=== PATIENT | male | born 1940 | race Caucasian/White ===

== ENCOUNTER 2018-06-28 08:38 | Inpatient (IN) | payer MEDICARE ==
[~2018-06-28] VITALS: Ht 180.3 cm; Wt 98.4 kg
--- OUTSIDE RECORDS SUMMARY | 2018-06-28 08:40 | XMS REPORT | Clinical Summary ---
Author Author MARILEE Yoomba [facility] [employer] [facility] Address Unknown Phone Unavailable Care Team Providers Care Flat Sorter Processor Name Role Phone Jose Juan Gilbert PCP Allergies No Known Allergies Medications End Date Status Medication Sig Dispensed Refills Start Date Active carvedilol (COREG) 25 MG Take 25 mg by 0 tablet mouth 2 (two) times daily with breakfast and dinner. Active aspirin 325 MG tablet Take 325 mg 0 by mouth daily. Active cholecalciferol (VITAMIN Take 1,000 0 D3) 1,000 unit tablet Units by mouth daily. Active magnesium 250 mg Tab Take by mouth 0 tablet daily. Active multivitamin per tablet Take 1 tablet 0 by mouth daily. Active UBIQUINONE ORAL Take 200 mg 0 by mouth daily. Active nitroglycerin Place 1 spray 0 (NITROLINGUAL) 400 under the mcg/spray spray tongue every 5 (five) minutes as needed for Chest pain. Active quinapril (ACCUPRIL) 20 Take 20 mg by 0 MG tablet mouth daily Patient says taking q AM. Active Problems Problem Noted Date Dilated cardiomyopathy Systolic congestive heart failure (HCC) -- LVEF 20% 12/20/2015 -- HEART CATH -- 08/2015 Premature supraventricular beats -- Frequent (4%) -- HOLTER -- 06/201512/20/2015 Old [place] (myocardial infarction) 12/20/2015 S/P implantation of automatic cardioverter/defibrillator (AICD) DDD AICD, 12/20/2015 BSX, Left, No DFTs 12/20/2015 PVC's (premature ventricular contractions) -- Very frequent (25%) -- 11/08/2015 bigeminy - couplets - triplets -- HOLTER 06/2015 PVC's (premature ventricular contractions) 09/20/2015 Abnormal nuclear stress test 09/20/2015 Congestive cardiomyopathy 09/20/2015 Coronary artery disease 09/20/2015 Essential hypertension 09/20/2015 Premature supraventricular beats 09/20/2015 COPD (chronic obstructive pulmonary disease) 09/20/2015 Chronic combined systolic and diastolic CHF, NYHA class 3 09/20/2015 S/P coronary artery stent placement -- 2000 -- CX stent -- [facility] 09/20/2015 Center Social History Date Tobacco Use Types Packs/Day Years Used Former Smoker Smokeless Tobacco: Snuff Current User Comments: Quit 5 yrs ago, pt may have cigarette every 1-2 mos Alcohol Use Drinks/Week oz/Week Comments No Sex Assigned at Date Recorded Not on file Industry Job Start Date Occupation Not on file Not on file Not on file Travel End Travel History Travel Start No recent travel history available. Last Filed Vital Signs Not on file Plan of Treatment Not on file Implants Device Identifier Shelf Expiration Date Model / Serial / Lot Implanted Type Area Manufactur er 09/09/2017 0276 64CM / [id number] / [employer] [place] / Model 0276 64cm [place] Implanted: Qty: 1 on 12/20/2015 SCIENTIFIC D152 / [id number] / Dynagen [address] / Model D152 [place] Implanted: Qty: 1 on 12/20/2015 [employer] 10/29/2017 7740 45CM / [id number] / Ingevity Mri / Model 7740 45cm [place] Implanted: Qty: 1 on 12/20/2015 [employer]ENTIFIC Results Not on fileafter 06/27/2017 Insurance Payer Benefit Subscriber ID Type Phone Address Plan / Group [facility] xxxxxxxxxxx MEDICARE ADV Advance Directives For more information, please contact: [facility] [address] [place] [address] Date Inactivated Comments Code Status Date Activated 12/21/2015 1:08 PM Full Code 12/20/2015 6:31 AM This code status was determined by: Patient 11/09/2015 11:26 AM Full Code 11/08/2015 5:48 PM This code status was determined by: Patient 09/20/2015 5:56 PM Full Code 09/20/2015 8:31 AM This code status was determined by: Patient 09/20/2015 8:31 AM Full Code 09/20/2015 5:43 AM This code status was determined by: Patient
[2018-06-28] MEDS ORDERED: IPRATROPIUM BROMIDE 0.02% 2.5 ML NEB NEB ONE (08:45)
[2018-06-28] MEDS ORDERED: LEVALBUTEROL HCL SOLN NEBU 0.63 MG/3 ML NEB INH ONE (08:45)
[2018-06-28 08:54] LABS: BASOPHILS % 0.3 % (0.0-1.0); EOSINOPHILS # (AUTO) 0.4 (0.0-0.4); EOSINOPHILS % 7.2 % (0.0-6.0); HEMATOCRIT 40.4 % (38.2-49.6); HEMOGLOBIN 13.4 g/dL (14.0-18.0); LYMPHOCYTES # (AUTO) 1.4 (1.0-3.2); LYMPHOCYTES % 23.3 % (18.0-39.1); MEAN CORPUSCULAR HEMOGLOBIN 32.1 pg (28-32); MEAN CORPUSCULAR HGB CONC 33.2 g/dL (31-35); MEAN CORPUSCULAR VOLUME 96.9 fL (81-99); MONOCYTES # (AUTO) 0.5 (0.2-0.8); MONOCYTES % 7.8 % (4.4-11.3); NEUTROPHILS # (AUTO) 3.6 (2.1-6.9); NEUTROPHILS % 61.2 % (38.7-80.0); PLATELET COUNT 141 x10e3/uL (140-360); RED BLOOD COUNT 4.17 x10e6/uL (4.3-5.7)
[2018-06-28 09:05] LABS: INR 0.92; PARTIAL THROMBOPLASTIN TIME 29.9 seconds (23.8-35.5); PROTHROMBIN TIME 13.2 seconds (11.9-14.5)
[2018-06-28 09:14] LABS: ALBUMIN 3.7 g/dL (3.5-5.0); ALBUMIN/GLOBULIN RATIO 1.3 (0.8-2.0); ANION GAP 15.3 mmol/L (8-16); CALCIUM 8.9 mg/dL (8.4-10.2); CREATININE, SERUM 1.24 mg/dL (0.72-1.25); MAGNESIUM 1.9 MG/DL (1.3-2.1); POTASSIUM 4.3 mmol/L (3.5-5.1)
[2018-06-28 09:20] LABS: B-TYPE NATRIURETIC PEPTIDE2 256.7 pg/mL (0-100)
[2018-06-28 09:25] LABS: INFLUENZAE A&B ANTIGEN (RAPID) NEGATIVE (NEGATIVE)
[2018-06-28 09:26] LABS: STREPTOCOCCUS GRP A ANTIGEN NEGATIVE (NEGATIVE)
[2018-06-28 09:34] LABS: CREATINE KINASE MB 3.6 ng/mL (0-5.0); THYROID STIMULATING HORMONE 0.868 uIU/mL (0.350-4.940)
[2018-06-28 10:06] LABS: CLARITY,URINE SL CLOUDY (CLEAR); COLOR,URINE YELLOW (YELLOW); PROTEIN,URINE DIPSTICK 2+ (NEGATIVE)
[2018-06-28 10:08] LABS: BILIRUBIN,URINE NEGATIVE (NEGATIVE); KETONES,URINE NEGATIVE (NEGATIVE); LEUKOCYTE ESTERASE ,URINE NEGATIVE (NEGATIVE); NITRITE,URINE NEGATIVE (NEGATIVE); URINE UROBILINOGEN 0.2 mg/dL (0.2 - 1)
[2018-06-28] MEDS ORDERED: AZITHROMYCIN 500MG/NS 250 ML 250 ML IV SCH (10:15)
[2018-06-28] MEDS ORDERED: CEFTRIAXONE SOD 1 GM/NS 50 ML 50 ML IV SCH (10:15)
[2018-06-28] MEDS ORDERED: ALBUTEROL SULF 0.083% NEB SOLN 3 ML NEB NEB SCH ×2 (10:15→11:00)
--- NOTE | 2018-06-28 10:16 | Diagnostic Imaging Report ---
Examination: Single AP view of the chest. COMPARISON: None. INDICATION: Cough, shortness of breath DISCUSSION: Lines/tubes: Cardiac ICD. Lungs: No focal pneumonia. Prominent interstitial markings. Pleura: There is no pleural effusion or pneumothorax. Heart and mediastinum: Heart size normal. Aortic calcifications. Bones and soft tissues: No acute bony abnormalities. IMPRESSION: 1. No acute cardiopulmonary abnormalities. Signed by: Dr. Mykel Gamino M.D. on 06/28/2018 10:12 AM
[2018-06-28 10:48] LABS: BACTERIA,URINE RARE /HPF; EPITHELIAL CELLS,URINE RARE /LPF; RBC,URINE 0-5 /HPF (0-5)
--- OUTSIDE RECORDS SUMMARY | 2018-06-28 10:53 | XMS REPORT | Clinical Summary ---
Author Author MARILEE [employer] [facility] [employer] [facility] Address Unknown Phone Unavailable Care Team Providers Care Body Specialist Name Role Phone Jose Juan Gilbert PCP [...] Frequent (4%) -- HOLTER -- 06/201512/20/2015 [place]my[place] infarction) 12/20/2015 S/P implantation of automatic [...] placement -- 2000 -- CX stent -- [facility] 09/20/2015 Center Social History Date Tobacco [...] Area Manufactur er 09/09/2017 0276 64CM / [id number] / Endotak [place] / Model 0276 64cm [place] Implanted: Qty: 1 on 12/20/2015 SCIENTIFIC D152 / [id number] / Dynagen [address] / Model D152 [place] Implanted: Qty: 1 on 12/20/2015 [employer]IFIC 10/29/2017 7740 45CM / [id number] / Ingevity Mri / Model 7740 45cm [place] Implanted: Qty: 1 on 12/20/2015 [employer]IFIC Results Not on fileafter 06/27/2017 Insurance Payer Benefit Subscriber ID Type Phone Address Plan / Group [facility] xxxxxxxxxxx MEDICARE ADV Advance Directives For more information, please contact: [facility] [address] [place] [address] Date Inactivated Comments Code Status [...]
--- OUTSIDE RECORDS SUMMARY | 2018-06-28 10:53 | XMS REPORT ---
Author Author [facility] Address Unknown Phone Unavailable Care Team Providers Care Hospice Nurse Practitioner Name Role Phone Brenden WALLER Unavailable Unavailable Problems This patient has no known problems. Allergies, Adverse Reactions, Alerts This patient has no known allergies or adverse reactions. Medications This patient has no known medications. Results Test Description Test Time Test Comments Text Results Atomic Results Result Comments CHEST SINGLE (PORTABLE) 2018-06-28 09:44:00 [place] [address] Patient Name: UDAY BRADY MR #: [id number] : 1940 Age/Sex: 78/M Req #: [id number] Adm Physician: Ordered by: NATALIE WALLER MD Report #: [id number] Location: ER Room/Bed: Procedure: [id number] DX/CHEST SINGLE (PORTABLE) Exam Date: 06/28/18 Exam Time: 09 REPORT STATUS: Signed Examination: Single AP view of the chest. JARRED RISON: None. INDICATION: Cough, shortness of breath DISCUSSION: Lines/tubes: Cardiac ICD. Lungs: No focal pneumonia. Prominent interstitial markings. Pleura: There is no pleural effusion or pneumothorax. Heart and mediastinum: Heart size normal. Aortic calcifications. Bones and soft tissues: No acute bony abnormalities. IMPRESSION: 1. No acute cardiopulmonary abnormalities. Signed by: Dr. Nahum Maharaj M.D. on 06/28/2018 10:12 AM Dictated By: NAHUM MAHARAJ MD 1012 Transcribed By: NELLI on 06/28/18 1012 COPY TO: NATALIE WALLER MD
[2018-06-28 11:10] LABS: OCCULT BLOOD STOOL POSITIVE (NEGATIVE)
--- NOTE | 2018-06-28 11:12 | NUR ---
PT PLACED IN HOSP BED AND GIVEN 1 CUP OF COFFEE WITH SUGAR AND CREAM
--- NOTE | 2018-06-28 11:13 | NUR ---
PT STATES RELIEF WITH OXYGEN VIA NC
[2018-06-28 11:51] LABS: C DIFFICILE TOXIN A&B AMP PROB NEGATIVE (NEGATIVE)
[2018-06-28] MEDS ORDERED: IPRATROPIUM BROMIDE 0.02% 2.5 ML NEB NEB SCH ×2 (12:00→13:00)
[2018-06-28] MEDS ORDERED: PREDNISONE 20 MG TAB PO ONE (12:15)
[2018-06-28] MEDS: ALBUTEROL/IPRATROPIUM 3 ML NEB NEB SCH ×2 (15:35→21:15)
[2018-06-28] MEDS: LACTOBACILLUS ACIDOPHILUS CAPSULE PO SCH (17:20)
[2018-06-28] MEDS: ENOXAPARIN SOD INJ 40 MG/0.4 ML SYR SC SCH (17:20)
[2018-06-28 20:00] VITALS: BP 163/78
--- NOTE | 2018-06-28 20:00 | NUR ---
. . . . .. . . . 00 Patient received via stretcher from ER. Admission history obtained and Initial physical assessment performed. Patient is AAO x 3. Patient had no complaints of pain. Telemetry with continuous pulse oximetry in place. Patient on 2L NC . Patient oriented to room, call light and plan of care. Bed locked and in lowest position. Bed rails up x 2. Patient instructed to call for assistance when needed. Call light within reach. -
[2018-06-28 20:03] VITALS: BP 175/79
[2018-06-28] MEDS ORDERED: areds 2 OU (20:41)
[2018-06-28] MEDS ORDERED: CARVEDILOL12.5 MG PO (20:41)
[2018-06-28] MEDS ORDERED: QUINAPRIL HCL20 MG PO (20:41)
[2018-06-28] MEDS ORDERED: ECOTRIN325 MG PO (20:41)
[2018-06-28 22:00] VITALS: BP 175/79
[2018-06-28] MEDS ORDERED: HYDRALAZINE HCL 20 MG/ML VIAL IV PRN (22:30)
[2018-06-28] MEDS ORDERED: LOPERAMIDE HCL 2 MG CAP PO PRN (22:30)
[2018-06-28] MEDS ORDERED: LOPERAMIDE HCL 2 MG CAP PO ONE (22:30)
--- NOTE | 2018-06-28 22:40 | NUR ---
Patient complained of diarrhea. Patient's BP also elevated ( 163/78). Dr. Rajeev Loredo notified. New orders received.
[2018-06-29 00:37] VITALS: BP 164/74
[2018-06-29 06:04] VITALS: BP 153/74
[2018-06-29 06:12] LABS: BASOPHILS % 0.2 % (0.0-1.0); EOSINOPHILS % 0.2 % (0.0-6.0); HEMATOCRIT 37.5 % (38.2-49.6); HEMOGLOBIN 13.2 g/dL (14.0-18.0); LYMPHOCYTES # (AUTO) 1.3 (1.0-3.2); LYMPHOCYTES % 22.7 % (18.0-39.1); MEAN CORPUSCULAR HEMOGLOBIN 33.1 pg (28-32); MEAN CORPUSCULAR HGB CONC 35.2 g/dL (31-35); MONOCYTES # (AUTO) 0.5 (0.2-0.8); MONOCYTES % 8.7 % (4.4-11.3); NEUTROPHILS # (AUTO) 3.9 (2.1-6.9); NEUTROPHILS % 67.9 % (38.7-80.0); PLATELET COUNT 144 x10e3/uL (140-360); RED BLOOD COUNT 3.99 x10e6/uL (4.3-5.7); RED CELL DISTRIBUTION WIDTH 11.9 % (11.7-14.4)
[2018-06-29 06:29] LABS: ALANINE AMINOTRANSFERASE 17 IU/L (0-55); ALBUMIN 3.7 g/dL (3.5-5.0); ALBUMIN/GLOBULIN RATIO 1.3 (0.8-2.0); ALKALINE PHOSPHATASE 34 IU/L (40-150); ANION GAP 14.8 mmol/L (8-16); BLOOD UREA NITROGEN 16 mg/dL (7-26); BUN/CREATININE RATIO 16 (6-25); CARBON DIOXIDE 26 mmol/L (22-29); CHLORIDE 99 mmol/L (98-107); CREATININE, SERUM 1.02 mg/dL (0.72-1.25); EST GLOMERULAR FILTRATION RATE > 60 ML/MIN (60-); GLUCOSE 98 mg/dL (74-118); POTASSIUM 4.8 mmol/L (3.5-5.1); SODIUM 135 mmol/L (136-145)
[2018-06-29 06:41] LABS: CHOL/HDL RATIO 3.2 (3.9-4.7)
--- NOTE | 2018-06-29 06:43 | Diagnostic Imaging Report ---
CHEST SINGLE (PORTABLE), 06/29/2018 5:29 AM Technique: CHEST SINGLE (PORTABLE) Comparison: Previous day Clinical history: Cough Findings: See Impression Impression: Limited by portable technique and overlying costochondral calcifications. 1. Lines/Tubes: Stable left chest wall ICD. 2. Stable cardiomediastinal silhouette. 3. Stable appearance of the lungs and pleural spaces without focal consolidation. Signed by: Dr Mara Leonard MD on 06/29/2018 6:40 AM
[2018-06-29] MEDS: ALBUTEROL/IPRATROPIUM 3 ML NEB NEB SCH ×2 (07:00→11:00)
--- NOTE | 2018-06-29 07:10 | NUR ---
Shift report given to oncoming nurse.
--- NOTE | 2018-06-29 07:14 | NUR ---
PT ALERT RESP EVEN AND UNLABORED AT THIS TIME, PT SITTING IN RECLINER, NO DISTRESS NOTED , PT ABLE TO MAKE NEEDS KNOWN, NO C/O PAIN AT THIS TIME. CALL LIGHT IN REACH.
[2018-06-29 07:57] LABS: LYMPHOCYTES % (MANUAL) 27 % (19-48); MONOCYTES % (MANUAL) 7 % (3.4-9.0); NEUTROPHILS % (MANUAL) 65 % (40-74); PLATELET ESTIMATE ADEQUATE; PLATELET MORPHOLOGY COMMENT NORMAL; RBC MORPHOLOGY COMMENT NORMAL
[2018-06-29 08:50] VITALS: BP 168/82
[2018-06-29] MEDS: ASPIRIN 81 MG ENTERIC COATED PO SCH (08:55)
[2018-06-29] MEDS: QUINAPRIL HCL 20 MG TAB PO SCH (08:55)
[2018-06-29] MEDS: LACTOBACILLUS ACIDOPHILUS CAPSULE PO SCH ×2 (08:55→18:11)
[2018-06-29] MEDS ORDERED: CEFTRIAXONE SOD 1 GM/NS 50 ML 50 ML IV SCH (09:00)
[2018-06-29] MEDS ORDERED: ASPIRIN 325 MG TAB PO SCH (09:00)
[2018-06-29 12:04] VITALS: BP 165/73
[2018-06-29] MEDS ORDERED: FUROSEMIDE INJ 10 MG/ML 4 ML VIAL IV ONE ×2 (13:00→18:00)
--- NOTE | 2018-06-29 15:20 | NUR ---
PT B/P 179, DR. FLYNN WAS CALLED, ORDERS GIVEN.
[2018-06-29 16:43] VITALS: BP 179/88
[2018-06-29] MEDS ORDERED: CLONIDINE HCL 0.1 MG TAB PO PRN (17:45)
[2018-06-29] MEDS: CARVEDILOL 12.5 MG TAB PO SCH (18:11)
[2018-06-29] MEDS: ENOXAPARIN SOD INJ 40 MG/0.4 ML SYR SC SCH (18:11)
[2018-06-29] MEDS ORDERED: CLONIDINE HCL 0.1 MG TAB PO ONE (18:15)
[2018-06-29] MEDS: ALBUTEROL/IPRATROPIUM 3 ML NEB NEB PRN (19:00)
--- NOTE | 2018-06-29 19:48 | NUR ---
REPORT GIVEN TO ONCOMING NURSE, FOR CONTINUED CARE.
[2018-06-29 19:50] VITALS: BP 125/62
--- NOTE | 2018-06-29 20:19 | NUR ---
Patient received relaxing in recliner chair. AAO x 3. Patient had no complaints of pain. No signs of respiratory distress. Call light within reach.
[2018-06-29] MEDS: HYDRALAZINE HCL 10 MG TAB PO SCH (22:30)
[2018-06-29] MEDS ORDERED: HYDRALAZINE HCL 10 MG TAB PO SCH (22:30)
--- NOTE | 2018-06-29 23:21 | Consultation ---
DATE OF CONSULTATION: June 29, 2018 CARDIAC CONSULTATION REASON FOR CONSULTATION: Shortness of breath, congestive heart failure, defibrillator. HISTORY: This is an 78-year-old gentleman who is known with long-standing history of coronary artery disease. Patient approximately 11 years ago or so had acute myocardial infarction, seen in [facility]. He had cardiac catheterization next day, so it seemed to be [id number] myocardial infarction and he had coronary stent. Subsequently, he changed his care to [facility]. He was seen by Dr. Junior where he had cardiac catheterization which showed patency of the stent. Patient went into atrial fibrillation approximately 3 years ago. He had ablation. He told me it is unsuccessful, but on EKG it seems he is having atrial pacing. Regardless, he had defibrillator at that time. He was able to be functional. He does have class III shortness of breath on exertion. He denied having any angina. He is maintained on his medication. He is followed regularly by Dr. Junior. He was seen 3 or 4 months ago, everything was fine. Patient came to this institution complaining of severe shortness of breath. Of note, there are 2 different histories. One of them is for the last 4 weeks whatever activity he does, he gets short-winded. The second, his had flu. She was seen in [facility]. She had flu positive, started on treatment. Himself, he was checked because of similar presentation with stuffiness and cough and upper respiratory tract like infection. His flu swab was negative. He was given amoxicillin. He developed diarrhea. He is still having quite a lot of shortness of breath and he is still not feeling very good. He denied having any angina. He does have some orthopnea. Patient came to this institution for shortness of breath. His BNP was only at 256. His chest x-ray showed the presence of the defibrillator in place; however, there is no evidence of volume overload. Patient is still having quite a lot of severe shortness of breath and easy fatigability. He does have some orthopnea. He does have cough and he is complaining of diarrhea. He had an echocardiogram, which was technically difficult, which will affect proper reading, but probably his ejection fraction in the range of 35-40%. REVIEW OF SYSTEMS GENERAL: Patient with acute illness. He has fever of greater than 102 and upper respiratory tract like infection with poor appetite and debility. PULMONARY: Severe shortness of breath. Patient is ex-heavy smoker, stopped 5 years ago, but he can sneak a cigarette every now and then. CARDIAC: Prior history of CHF and atrial fibrillation status post ablation, stable recently. GI: No hematemesis. No melena. : Increased frequency of urination. MUSCULOSKELETAL: Weakness. NEUROLOGICAL: No seizure activity. No weakness. GI: Diarrhea recently, but no hematemesis. No melena. SOCIAL HISTORY: He is a retired highway construction inspector. Social alcohol drinker. Smoked until 5 years ago, but every now and then he sneaks a cigarette. HOME MEDICATIONS: Aspirin, Coreg 12.5 mg twice a day, and quinapril 20 mg a day. ALLERGIES: NONE. PAST MEDICAL HISTORY 1. COPD. 2. Ex-heavy smoker. 3. Coronary artery disease. 4. Congestive heart failure. 5. ICD placement. 6. Status post major myocardial infarction 10 years ago. 7. Atrial fibrillation ablation. FAMILY HISTORY: Father at the age of 50 with myocardial infarction. Mother had coronary artery disease, but she in her 80s of congestive heart failure. PHYSICAL EXAMINATION VITALS: Height of 6 feet, weight of 220 pounds, blood pressure 160/70, heart rate of 60, respiratory rate of 18, currently afebrile. HEENT: Complaint of congested throat and his voice is a little bit harsh. NECK: No elevation of jugular venous pulsation. CHEST: Decreased air entry in bases with decreased lung expansion, few crackles. HEART: ICD is noted in place. PMI in the fifth left intercostal space, normal first and second heart sounds. ABDOMEN: Soft with good bowel sounds. No organomegaly. No abdominal bruits. EXTREMITIES: No cyanosis. No clubbing. No edema. NEUROLOGIC: Awake, alert, oriented, and nonfocal. LABORATORY DATA: BUN of 16, creatinine of 1, sodium of 135, potassium of 4.8. White blood cell count of 5.7, hemoglobin 13.2, hematocrit 37%, platelet of 144,000. TSH of 0.9. Troponins are normal. BNP of only 256. Triglycerides of 104, cholesterol 137, HDL of 43, LDL of 73, TSH of 0.7. Stool for C. difficile is negative. Stool for occult blood is positive. IMPRESSION AND PLAN 1. Febrile illness with with flu. The patient is having typical symptoms of flu that is very high probability and probably is most likely diagnosis. 2. Chronic congestive heart failure. 3. Very difficult to ascertain chronic exacerbation, but the patient is very symptomatic; however, his BNP is only 256. 4. Atrial fibrillation, status post ablation. 5. Coronary artery disease, status post major myocardial infarction, stenting. 6. ICD placement. 7. Obesity. 8. Stool positive for occult blood. Cardiac-oh, my recommendation is observation. Treatment as done by Dr. Loredo. The patient will be given 1 dose of Lasix and they will repeat labs in the morning. We will continue of course his BRAYAN inhibitor, his Coreg, and his aspirin. We will dose him with diuretics as needed. We had a lengthy discussion. I told the patient that once his diarrhea resolves and his shortness of breath is better, probably he should have at least a cardiac stress test. He verbalized understanding. Job#: [id number] HOWARD
[2018-06-30] VITALS (7 sets, daily range): BP systolic 125–170; BP diastolic 62–72
[2018-06-30] MEDS: HYDRALAZINE HCL 10 MG TAB PO SCH ×3 (06:16→22:00)
--- NOTE | 2018-06-30 07:08 | NUR ---
pt awake resp even and unlabored at this time, pt sitting upright in bed, pt has no SOB at this time, pt no distress noted, call light in reach.
[2018-06-30 07:18] LABS: BASOPHILS % 0.4 % (0.0-1.0); EOSINOPHILS # (AUTO) 0.3 (0.0-0.4); EOSINOPHILS % 4.4 % (0.0-6.0); HEMATOCRIT 37.6 % (38.2-49.6); HEMOGLOBIN 13.4 g/dL (14.0-18.0); LYMPHOCYTES # (AUTO) 1.5 (1.0-3.2); LYMPHOCYTES % 25.7 % (18.0-39.1); MEAN CORPUSCULAR HEMOGLOBIN 33.4 pg (28-32); MEAN CORPUSCULAR HGB CONC 35.6 g/dL (31-35); MEAN CORPUSCULAR VOLUME 93.8 fL (81-99); MONOCYTES # (AUTO) 0.7 (0.2-0.8); MONOCYTES % 12.9 % (4.4-11.3); NEUTROPHILS # (AUTO) 3.2 (2.1-6.9); NEUTROPHILS % 56.1 % (38.7-80.0); PLATELET COUNT 172 x10e3/uL (140-360); RED BLOOD COUNT 4.01 x10e6/uL (4.3-5.7); RED CELL DISTRIBUTION WIDTH 12.1 % (11.7-14.4)
[2018-06-30 07:37] LABS: ANION GAP 15.2 mmol/L (8-16); CALCIUM 9.2 mg/dL (8.4-10.2); CREATININE, SERUM 1.2 mg/dL (0.72-1.25); MAGNESIUM 2.3 MG/DL (1.3-2.1); POTASSIUM 4.2 mmol/L (3.5-5.1)
[2018-06-30] MEDS: ASPIRIN 81 MG ENTERIC COATED PO SCH (09:52)
[2018-06-30] MEDS: LACTOBACILLUS ACIDOPHILUS CAPSULE PO SCH ×2 (09:52→17:44)
[2018-06-30] MEDS: QUINAPRIL HCL 20 MG TAB PO SCH (09:52)
[2018-06-30] MEDS: CARVEDILOL 12.5 MG TAB PO SCH (09:53)
[2018-06-30] MEDS ORDERED: CARVEDILOL 3.125 MG TAB PO SCH (17:00)
[2018-06-30] MEDS: ENOXAPARIN SOD INJ 40 MG/0.4 ML SYR SC SCH (17:44)
--- NOTE | 2018-06-30 19:21 | NUR ---
Received patient sitting in recliner chair watching TV. AAO x 4. No acute distress noted. Patient instructed to call for assistance when needed. Call light within reach.
[2018-06-30] MEDS: ALBUTEROL/IPRATROPIUM 3 ML NEB NEB PRN (19:22)
--- NOTE | 2018-06-30 19:26 | NUR ---
REPORT GIVEN TO ONCOMING NURSE, FOR CONTINUED CARE.
[2018-07-01] VITALS (10 sets, daily range): BP systolic 123–180; BP diastolic 58–76
[2018-07-01] MEDS: HYDRALAZINE HCL 10 MG TAB PO SCH (06:40)
--- NOTE | 2018-07-01 07:25 | NUR ---
Walking rounds done. Shift report given to oncoming nurse.
[2018-07-01] MEDS: ALBUTEROL/IPRATROPIUM 3 ML NEB NEB PRN ×2 (08:00→19:55)
[2018-07-01] MEDS ORDERED: FUROSEMIDE INJ 10 MG/ML 4 ML VIAL IV NR (08:30)
[2018-07-01] MEDS: ASPIRIN 81 MG ENTERIC COATED PO SCH (09:00)
[2018-07-01] MEDS: LACTOBACILLUS ACIDOPHILUS CAPSULE PO SCH ×2 (09:00→17:25)
[2018-07-01] MEDS: CARVEDILOL 12.5 MG TAB PO SCH ×2 (09:00→17:25)
[2018-07-01] MEDS: QUINAPRIL HCL 20 MG TAB PO SCH (09:00)
[2018-07-01] MEDS ORDERED: CLONIDINE HCL 0.1 MG TAB PO PRN (12:15)
[2018-07-01] MEDS ORDERED: HYDRALAZINE HCL 10 MG TAB PO SCH (14:00)
[2018-07-01] MEDS: HYDRALAZINE HCL 100 MG TABLET PO SCH ×2 (14:27→22:00)
--- NOTE | 2018-07-01 14:31 | NUR ---
CASE MANAGEMENT INITIAL ASSESSMENT Industrial Health And Safety Professor to bedside to discuss plan of care with patient/family. CM/SW role and care transitions discussed. Anticipated discharge plan discussed along with duration of care. CM/SW discussed patients right to make decisions in care. CM/SW work hours given. Patient lives: with Kathy Sanches Admit/Transfer: thru ED Hospital/ER visits since last admit: has not been to the hospital in a couple of years POA/Emergency contact: [phone] Current/Previous Home Health: none PCP/Follow-up Care: [facility] Current/Previous DME: none Medications (referring to index hospitalization or the first time you were in the hospital) a. Were changes made in your medications when you were in the hospital on [date of index hospitalization]? no; pt states he has been taking the same medication for 18 years b. Did you understand the changes? n/a c. Were you able to obtain your new medications right away? n/a d. Were you able to take your medications like the doctor wanted you to? yes e. Did the hospital give you an accurate, easy to understand list of medications when you left? n/a Scale of 1-10 how comfortable does patient feel with disease management in outpatient setting: Other Services: none Employment Status: retired Areas of Concerns: CHF, COPD, pneumonia Referral Needs: may need home health for CHF, COPD monitoring; may need home oxygen Education Needs: medical management IMM/HOWARD given and signed (if applicable): none at this time Goal for discharge: return home independently; one of his daughters will provide transportation CM/SW left business card at the bedside with contact information. Name and number was also written on the patients whiteboard. Patient verbalized understanding of discussion. CM will follow-up with ongoing discharge and transition of care needs.
[2018-07-01] MEDS ORDERED: CARVEDILOL 3.125 MG TAB PO SCH (17:00)
[2018-07-01] MEDS ORDERED: ONDANSETRON HCL INJ 2MG/ML 2ML 2 MG/ML VIAL IV PRN (17:15)
[2018-07-01] MEDS: ENOXAPARIN SOD INJ 40 MG/0.4 ML SYR SC SCH (17:26)
[2018-07-02] VITALS (9 sets, daily range): BP systolic 111–149; BP diastolic 54–70
[2018-07-02] MEDS: HYDRALAZINE HCL 100 MG TABLET PO SCH ×3 (06:00→21:48)
[2018-07-02 06:36] LABS: ANION GAP 15.3 mmol/L (8-16); CREATININE, SERUM 1.9 mg/dL (0.72-1.25); MAGNESIUM 2.3 MG/DL (1.3-2.1); POTASSIUM 4.3 mmol/L (3.5-5.1)
[2018-07-02 07:03] LABS: BASOPHILS % 0.4 % (0.0-1.0); EOSINOPHILS # (AUTO) 0.3 (0.0-0.4); EOSINOPHILS % 4.9 % (0.0-6.0); HEMATOCRIT 40.7 % (38.2-49.6); HEMOGLOBIN 13.6 g/dL (14.0-18.0); LYMPHOCYTES # (AUTO) 1.4 (1.0-3.2); LYMPHOCYTES % 19.9 % (18.0-39.1); MEAN CORPUSCULAR HEMOGLOBIN 32.2 pg (28-32); MEAN CORPUSCULAR HGB CONC 33.4 g/dL (31-35); MEAN CORPUSCULAR VOLUME 96.4 fL (81-99); MONOCYTES % 14.1 % (4.4-11.3); NEUTROPHILS # (AUTO) 4.1 (2.1-6.9); NEUTROPHILS % 60.1 % (38.7-80.0); PLATELET COUNT 196 x10e3/uL (140-360); RED BLOOD COUNT 4.22 x10e6/uL (4.3-5.7); RED CELL DISTRIBUTION WIDTH 12.2 % (11.7-14.4)
--- NOTE | 2018-07-02 07:03 | NUR ---
Patient is sitting up on side of bed in NAD. He denies any CP, SOB or any other complaints at this time. POC discussed. Patient instructed to call for assistance as needed and verbalized understanding. Tele #[phone], SR at 75 per teletype installer. Bed in lowest position, locked and call todd within reach.
[2018-07-02] MEDS ORDERED: FUROSEMIDE 40 MG TAB PO SCH (09:00)
[2018-07-02] MEDS: QUINAPRIL HCL 20 MG TAB PO SCH (09:00)
[2018-07-02] MEDS: CARVEDILOL 12.5 MG TAB PO SCH ×2 (09:05→17:30)
[2018-07-02] MEDS: ASPIRIN 81 MG ENTERIC COATED PO SCH (09:18)
[2018-07-02] MEDS: LACTOBACILLUS ACIDOPHILUS CAPSULE PO SCH (09:19)
[2018-07-02] MEDS: ISOSORBIDE DINITRATE 20 MG TAB PO SCH ×2 (15:01→21:00)
--- NOTE | 2018-07-02 15:19 | Diagnostic Imaging Report ---
Examination: Single AP view of the chest. COMPARISON: None. INDICATION: Low-grade fever DISCUSSION: Lines/tubes: Dual-lead ICD. Lungs: Left lung calcified granuloma. Prominent interstitial markings most prominent in the right lower lung. No focal pneumonia. Pleura: No pleural effusion or pneumothorax. Heart and mediastinum: The heart and the mediastinum are unremarkable. Bones and soft tissues: No acute bony abnormalities. IMPRESSION: 1. No acute cardiopulmonary abnormalities. Signed by: Dr. Mykel Gamino M.D. on 07/02/2018 3:15 PM
[2018-07-02] MEDS ORDERED: DILTIAZEM HCL 5 MG/ML 5 ML VIAL IV STA (15:51)
--- NOTE | 2018-07-02 15:54 | NUR ---
denture technician called to report patient is fluctuating from HR 130's to [address] AFIB[address] Dr[address] Gee notified and orders received for Cardizem 5mg IV Q5 minutes x2, then Cardizem 60mg PO q8 hours and hold for HR less than 70. Stat EKG showed Afib with RVR at 155. supervisor seaming, Toshia, and ICU charge nurse, Isela SANCHEZ, notified and at bedside to administer Cardizem IV.
--- NOTE | 2018-07-02 16:45 | NUR ---
Patient is currently @87, SR per Animoca. Patient just a little worried about his that is in the ER. Patient reassured and informed will be moving to room 203 shortly. Call todd within reach. He was instructed to call with any complaints or concerns and verbalized understanding.
--- NOTE | 2018-07-02 18:30 | NUR ---
Patient assisted to recliner per request. Heart rate remains SR@75 per telesales professional. Call todd placed within reach and family at the bedside.
[2018-07-02] MEDS: DILTIAZEM HCL 60 MG TAB PO SCH (21:48)
[2018-07-03] VITALS (7 sets, daily range): BP systolic 113–127; BP diastolic 49–59
[2018-07-03 05:22] LABS: BASOPHILS % 0.4 % (0.0-1.0); EOSINOPHILS # (AUTO) 0.3 (0.0-0.4); EOSINOPHILS % 4.2 % (0.0-6.0); HEMATOCRIT 36.4 % (38.2-49.6); LYMPHOCYTES # (AUTO) 1.5 (1.0-3.2); LYMPHOCYTES % 20.7 % (18.0-39.1); MEAN CORPUSCULAR HEMOGLOBIN 31.7 pg (28-32); MEAN CORPUSCULAR VOLUME 96.3 fL (81-99); NEUTROPHILS # (AUTO) 4.5 (2.1-6.9); NEUTROPHILS % 59.8 % (38.7-80.0); PLATELET COUNT 186 x10e3/uL (140-360); RED BLOOD COUNT 3.78 x10e6/uL (4.3-5.7); RED CELL DISTRIBUTION WIDTH 12.4 % (11.7-14.4)
[2018-07-03] MEDS: HYDRALAZINE HCL 100 MG TABLET PO SCH ×3 (05:36→22:00)
[2018-07-03] MEDS: DILTIAZEM HCL 60 MG TAB PO SCH (05:36)
[2018-07-03 05:45] LABS: ALBUMIN 3.5 g/dL (3.5-5.0); ALBUMIN/GLOBULIN RATIO 1.5 (0.8-2.0); ANION GAP 16.4 mmol/L (8-16); POTASSIUM 4.4 mmol/L (3.5-5.1)
[2018-07-03 05:48] LABS: CREATININE, SERUM 3.67 mg/dL (0.72-1.25)
[2018-07-03] MEDS ORDERED: SODIUM CHLORIDE 0.9% 1000ML 1,000 ML IV SCH (06:45)
--- NOTE | 2018-07-03 06:45 | NUR ---
Spoke to Dr. Loredo regarding elevated creatinine, new orders, consult rc'd.
--- NOTE | 2018-07-03 07:06 | NUR ---
spoke to orion for dr. tara rosa.
[2018-07-03] MEDS: ASPIRIN 81 MG ENTERIC COATED PO SCH (09:27)
[2018-07-03] MEDS: CARVEDILOL 12.5 MG TAB PO SCH ×2 (09:27→17:55)
[2018-07-03] MEDS: ISOSORBIDE DINITRATE 20 MG TAB PO SCH ×3 (09:27→20:50)
[2018-07-03] MEDS ORDERED: DILTIAZEM HCL 60 MG TAB PO PRN (10:00)
[2018-07-03] MEDS: SIMETHICONE 80 MG CHEW PO PRN (12:44)
[2018-07-03] MEDS: FAMOTIDINE 20 MG TAB PO SCH (12:44)
--- NOTE | 2018-07-03 14:45 | Diagnostic Imaging Report ---
EXAM: Renal Ultrasound INDICATION: Hydronephrosis. COMPARISON: None TECHNIQUE: Transverse and longitudinal images of the kidneys and bladder were obtained. FINDINGS: Right Kidney: Length: Measures 11.1 x 4.4 x 4.7 cm Appearance: Normal echogenicity. Collecting system: No hydronephrosis Stones: None Cyst/Mass: No evidence of solid mass. There is a predominant simple appearing cyst in the upper pole measuring up to 2 cm. Left Kidney: Length: Measures 11.8 x 6.0 x 4.4 cm Appearance: Normal echogenicity. Collecting system: No hydronephrosis Stones: None Cyst/Mass: No evidence of solid mass. There is a simple appearing anechoic cyst within the midpole measuring up to 1.6 cm. Bladder: Partially decompressed. IMPRESSION: No evidence of hydronephrosis or stone. Bilateral renal cysts as above. Signed by: Dr. Jc Recinos MD on 07/03/2018 2:41 PM
--- NOTE | 2018-07-03 15:16 | Diagnostic Imaging Report ---
EXAMINATION: ABDOMEN-1VIEW (KUB) INDICATION: Nausea COMPARISON: Renal ultrasound 07/03/2018. FINDINGS: There is a nonobstructive bowel gas pattern. Bowel gas partially obscures visualization of the kidneys. There is a 5 mm and a 2 mm calcification overlying the expected location of the lower pole of the left kidney. No acute osseous abnormality. Degenerative changes of lower lumbar spine. Atherosclerotic vascular calcifications. Partially seen pacemaker leads. IMPRESSION: No radiographic evidence of bowel obstruction. Calcifications measuring 5 mm and 2 mm overlying the left lower pole kidney may represent renal stones, however no stones were identified on same day renal ultrasound. Alternatively, these may represent calcifications within the bowel. Signed by: Dr. Jc Recinos MD on 07/03/2018 3:12 PM
[2018-07-03] MEDS ORDERED: ALBUMIN 5% 0.05 GM/ML BTL IV ONE (16:15)
--- NOTE | 2018-07-03 17:16 | Consultation ---
DATE OF CONSULTATION: July 03, 2018 REASON FOR CONSULTATION: Worsening kidney function. History predominantly from chart, electronic records, patient and his daughter. Initial baseline serum creatinine 1.24 on June 28, 2018. Patient currently awake, alert, tachypneic. Mildly short of breath. He has existing history of COPD, prior tobacco addiction. History of coronary artery disease, congestive heart failure status post AICD placement [address] Sandoval for the last 18 years. Recent labs show worsening serum creatinine from 1.2 to 1.9 to 3.67 with a sodium 133, potassium 4.4, bicarbonate 25. Magnesium last 2.3. Total bilirubin 1. Last BNP 158. Total protein 5.9. ALLERGIES: NO APPARENT DRUG ALLERGIES. SOCIAL HISTORY: Patient has quit smoking. Denies any alcohol use. FAMILY HISTORY: Significant for hypertension. MEDICATIONS 1. Currently on albuterol and Atrovent nebulizers. 2. Aspirin 81 mg daily. 3. Carvedilol 25 mg p.o. b.i.d. 4. Clonidine p.r.n. 5. Diltiazem 60 mg p.o. q.8 p.r.n. 6. Famotidine 20 mg daily. 7. Hydralazine 100 mg p.o. q.8. 8. Isosorbide 20 mg p.o. t.i.d. 9. Imodium p.r.n. 10. Ondansetron p.r.n. 11. Simethicone p.r.n. PAST MEDICAL HISTORY: Patient denies any history of stroke, diabetes. Has a history of hypertension. States he has hypospadias. Has had congestive heart failure and atrial fibrillation in the past. Most recent echo shows ejection fraction approximately 35%. Kidney ultrasound has been done, shows relatively normal size kidneys. PHYSICAL EXAMINATION GENERAL: Awake, alert, sitting up. Mild respiratory distress. VITALS: Blood pressure 116/56, pulse rate 63, afebrile, respiratory rate 23, with oxygen saturation 92% nasal cannula. HEAD AND NECK: Arcus senilis noted. Oral mucosa moist. Neck veins distended. LUNGS: Occasional end-expiratory rhonchi. No rales. HEART: S1, S2 audible. Soft heart sounds. ABDOMEN: Otherwise soft, nontender. LOWER EXTREMITY EXAMINATION: Shows no edema. SKIN: Dry with relatively poor turgor. IMPRESSIONS 1. Acute kidney injury in a patient with chronic kidney disease, most likely underlying nephrosclerosis. Signs and symptoms suggestive of benign prostatic hypertrophy. 2. Underlying hypertension. 3. Congestive heart failure. He has an automatic implantable cardioverter-defibrillator. 4. Atrial fibrillation. 5. Coronary artery disease. Currently no evidence of congestive heart failure. Ejection fraction is low, which I have noted. Agree with IV normal saline. For the moment, will hold it and give IV albumin, resuscitate volume. Send urine sodium, creatinine, calculated fractional excretion of sodium. Gentle hydration. Discussed with daughter. Discussed with RN, present at bedside. Please see orders. Job#: [id number] ROSA MARIA
[2018-07-03] MEDS: ACETAMINOPHEN 325 MG TAB PO PRN (19:14)
--- NOTE | 2018-07-03 19:35 | NUR ---
Patient received lying in bed. Daughter at bedside. AAO x 3. No complaints of pain /discomfort. No signs of respiratory distress. Fall precautions maintained. Patient instructed to call for assistance when needed. Call light within reach.
[2018-07-03] MEDS: HEPARIN SOD (PORCINE) 5,000 UNIT/ML VIAL SC SCH (20:51)
[2018-07-04] VITALS (8 sets, daily range): BP systolic 117–140; BP diastolic 52–64
[2018-07-04 05:45] LABS: ALBUMIN 3.9 g/dL (3.5-5.0); ALBUMIN/GLOBULIN RATIO 1.6 (0.8-2.0); ANION GAP 15.6 mmol/L (8-16); CALCIUM 8.6 mg/dL (8.4-10.2); CREATININE, SERUM 3.66 mg/dL (0.72-1.25); POTASSIUM 4.6 mmol/L (3.5-5.1)
[2018-07-04] MEDS: HYDRALAZINE HCL 100 MG TABLET PO SCH ×3 (06:17→22:10)
[2018-07-04] MEDS: FAMOTIDINE 20 MG TAB PO SCH (07:40)
[2018-07-04] MEDS: SIMETHICONE 80 MG CHEW PO PRN (07:40)
[2018-07-04] MEDS: CARVEDILOL 12.5 MG TAB PO SCH ×2 (08:53→17:00)
[2018-07-04] MEDS: ASPIRIN 81 MG ENTERIC COATED PO SCH (08:53)
[2018-07-04] MEDS: ISOSORBIDE DINITRATE 20 MG TAB PO SCH ×3 (08:53→22:08)
[2018-07-04] MEDS: HEPARIN SOD (PORCINE) 5,000 UNIT/ML VIAL SC SCH ×2 (09:59→22:09)
--- NOTE | 2018-07-04 15:13 | NUR ---
Nutrition Screen Note RD Recommendation for Physician: Continue diet as ordered Plan of Care: RD following, monitoring for adequacy and tolerance Nutrition reason for involvement: LOS Primary Diagnose(s): CHF, COPD exacerbation, pneumonia Ht:71 in Wt:217lbs BMI:30.3 kg/m2 IBW:172lbs RD Assessment:() Initial encounter with patient. Pt with C/O nausea and he doesn't eat as well when nauseated. Taking Ondansetron and it's working well for him. Pt states that he feels like he has loss wt, but is not sure how much. Offered Ensure Enlive and Pt. is requesting chocolate flavor. Will send TID with meals. Pt wears dentures, but denies any difficulty chewing or swallowing. Current Diet: Malnutrition Evaluation (07/04/2018) The patient does not meet criteria for a specified degree of malnutrition at this time. Will re-evaluate at follow-up as appropriate. Diet Education Needs Assessment: Diet education not indicated. Diet Adequacy: Meeting calorie needs, Meeting protein needs, Meeting fluid needs Tolerance: Tolerating PO Nutrition Care Level: Low Jesus Drake RD, JD, [facility] Addendum: 07/04/18 at 1529 by Jesus Drake DIET Diet: Cardiac
[2018-07-04] MEDS ORDERED: ALBUMIN 5% 0.05 GM/ML BTL IV ONE (17:30)
[2018-07-04] MEDS: ALBUMIN 5% 250ML 250 ML IV SCH ×2 (19:31→22:06)
--- NOTE | 2018-07-04 20:27 | NUR ---
RECEIVED PT SITTING ON THE COMMODE .DENIES PAIN .NO ACUTE DISTRESS NOTED .FAMILY AT THE BEDSIDE .CALL LIGHT WITH IN REACH .CONTINUE TO MONITOR
[2018-07-05] VITALS (7 sets, daily range): BP systolic 119–168; BP diastolic 53–70
[2018-07-05 05:47] LABS: ANION GAP 14.3 mmol/L (8-16); CALCIUM 8.3 mg/dL (8.4-10.2); CREATININE, SERUM 2.57 mg/dL (0.72-1.25); POTASSIUM 4.3 mmol/L (3.5-5.1)
[2018-07-05] MEDS: HYDRALAZINE HCL 100 MG TABLET PO SCH ×2 (06:33→14:00)
--- NOTE | 2018-07-05 06:45 | NUR ---
PT RESTED DURING THE NIGHT .NO ACUTE DISTRESS NOTED .FAMILY AT THE BEDSIDE .CONTINUE TO MONITOR
--- NOTE | 2018-07-05 07:00 | NUR ---
RCD PT AT BED PT IS ALERT AND ORIENTED ASSESSMENT DONE PT RESTING ON BED NO SIGNS OF ANY DISTRESS NOTED IV PATENT BED LOW AND LOCKED CALL LIGHT IN REACH
--- NOTE | 2018-07-05 07:13 | NUR ---
REPORT GIVEN TO THE ONCOMING NURSE.
[2018-07-05] MEDS: CARVEDILOL 12.5 MG TAB PO SCH ×2 (08:00→17:00)
[2018-07-05] MEDS: ISOSORBIDE DINITRATE 20 MG TAB PO SCH ×2 (08:56→15:00)
[2018-07-05] MEDS: FAMOTIDINE 20 MG TAB PO SCH (08:56)
[2018-07-05] MEDS: ASPIRIN 81 MG ENTERIC COATED PO SCH (08:56)
[2018-07-05] MEDS: HEPARIN SOD (PORCINE) 5,000 UNIT/ML VIAL SC SCH (09:00)
[2018-07-05 12:08] LABS: CREATININE,URINE RANDOM 90.73 mg/dL (63-166)
--- NOTE | 2018-07-05 14:57 | NUR ---
home o2 eval done. received order to set up home oxygen. spoke with pt at bedside. he signed choice for [facility] [employer]. signed copy placed in chart. copy to pt. CM called Renae with [employer] [facility] [employer] who verified that they accept pt's insurance. BRAYAN informed her we are planning for discharge this weekend. Referral was faxed to [phone] and asked to expedite order.
--- NOTE | 2018-07-05 15:00 | NUR ---
[facility] letter delivered and explained to pt. He acknowledged and stated he wants to go home as soon as possible. Signed copy placed in chart. Copy to pt.
--- NOTE | 2018-07-05 16:23 | NUR ---
Spoke with Deb from [email or web address] for update on status of oxygen order. She stated that she if verifying benefits with insurance but should be able to deliver to hospital today. Updated pt on status. Felicita kendall provided to pt from hospital. Addendum: 07/05/18 at 1719 by Dana Lopez CM [email or web address] phone number [phone].
[2018-07-05] MEDS ORDERED: COREG12.5 MG PO (17:12)
[2018-07-05] MEDS ORDERED: ASPIR 8181 MG PO (17:15)
[2018-07-05] MEDS ORDERED: HYDRALAZINE HCL10 MG PO (17:16)
[2018-07-05] MEDS ORDERED: ISORDIL40 MG PO (17:17)
--- NOTE | 2018-07-05 19:00 | NUR ---
RECEIVED PT SITTING UP IN CHAIR.NO S/S OF DISTRESS NOTED.RESPIRATIONS EVEN/NON LABORED.FAMILY AT BEDSIDE.PT WAITING ON OXYGEN DELIVERY TO ROOM, PRIOR TO DC HOME.WILL CONTINUE TO MONITOR.
[2018-07-05] MEDS: ACETAMINOPHEN 325 MG TAB PO PRN (19:34)
--- NOTE | 2018-07-05 20:08 | NUR ---
IV TO LEFT FA DC'D WITH TIP INTACT.PRESSURE DRESSING APPLIED.
--- NOTE | 2018-07-05 20:19 | NUR ---
PT TAKEN TO FRONT LOBBY AND TO PRIVATE AUTO VIA WHEEL CHAIR IN STABLE CONDITION AT THIS TIME.HOME O2 DELIVERED TO HOSPITAL AND TAKEN WITH THE PT.ALL OTHER PERSONAL BELONGINGS TAKEN WITH THE PATIENT.PT'S TELEMETRY BOX RETURNED TO RESPONSIBLE DEPARTMENT.
== END 2018-07-05 20:28 | disposition home or self-care (01) | DRG 190 ==
LOC: ER 08:38 → ERHOLD 10:51 → MED/SURG2 19:39
PROVIDERS: ADMIT Internal Medicine; ATTEND Internal Medicine
DX: J44.1 Chronic obstructive pulmonary disease with (acute) exacerbation (principal); I50.23 Acute on chronic systolic (congestive) heart failure; N17.9 Acute kidney failure, unspecified; J96.10 Chronic respiratory failure, unspecified whether with hypoxia or hypercapnia; I13.0 Hypertensive heart and chronic kidney disease with heart failure and stage 1 through stage 4 chronic kidney disease, or unspecified chronic kidney disease; I25.2 Old myocardial infarction; I25.10 Atherosclerotic heart disease of native coronary artery without angina pectoris; Z95.5 Presence of coronary angioplasty implant and graft; Z87.891 Personal history of nicotine dependence; Z95.810 Presence of automatic (implantable) cardiac defibrillator; Z79.01 Long term (current) use of anticoagulants; I48.0 Paroxysmal atrial fibrillation; R50.9 Fever, unspecified; R19.5 Other fecal abnormalities; Z99.81 Dependence on supplemental oxygen; E66.9 Obesity, unspecified; Z68.30 Body mass index [BMI] 30.0-30.9, adult; N18.9 Chronic kidney disease, unspecified
CPT/HCPCS: 36415; 71045; 74018; 76770; 80048; 80053; 80061; 80162; 81001; 82270; 82550; 82553; 82570; 82948; 83518; 83605; 83735; 83880; 84300; 84443; 84484; 85025; 85610; 85730; 87040; 87070; 87086; 87205; 87400; 87493; 93005; 93306; 94640; 99284; J0456; J0696; J1644; J1650; J1940; J2405; J7030; J7512